=== PATIENT | female | born 1995 | race Caucasian/White ===

== ENCOUNTER 2019-02-17 13:26 | Emergency (ER) | payer SELFPAY ==
[~2019-02-17] VITALS: Ht 149.9 cm; Wt 52.8 kg
[2019-02-17 13:39] VITALS: BP 108/61; PULSE 62; RESP 18; Ht 149.9 cm; Wt 52.8 kg
[2019-02-17] MEDS ORDERED: CEFTRIAXONE 1 GM INJ IM ONE (15:00)
[2019-02-17] MEDS ORDERED: LIDOCAINE 1% (MPF) 5 ML VIAL INJ ONE (15:00)
[2019-02-17] MEDS ORDERED: CIPR500T4 PO (15:06)
--- NOTE | 2019-02-17 15:49 | ERD ---
ER Documentation Chief Complaint Chief Complaint painful urination and vaginal pain HPI 23-year-old female presenting with dysuria. Patient states is been going on for about a week. Denies any back pain in the denies fever. Has not taken medications for symptoms. Denies medical problems. NKDA. Surgical history denies. Social history denies ROS All systems reviewed and are negative except as per history of present illness. Medications Home Meds Active Scripts Ciprofloxacin Hcl* (Ciprofloxacin Hcl*) 500 Mg Tablet, 500 MG PO BID for 10 Days, TAB Prov:ADELE FLOR PA-C 02/17/19 Allergies Allergies: Coded Allergies: No Known Allergy (Unverified , 02/17/19) PMhx/Soc Medical and Surgical Hx: pt denies Medical Hx, pt denies Surgical Hx Hx Alcohol Use: No Hx Substance Use: No Hx Tobacco Use: No Smoking Status: Never smoker FmHx Family History: No diabetes, No coronary disease, No other Physical Exam Vitals Vital Signs Date Temp Pulse Resp B/P (MAP) Pulse Ox O2 O2 Flow FiO2 Time Delivery Rate 02/17/19 98.3 62 18 108/61 98 13:39 (77) Physical Exam GENERAL: The patient is well-appearing, well-nourished, in no acute distress CHEST: Clear to auscultation bilaterally. There are no rales, wheezes or rhonchi. HEART: Regular rate and rhythm. No murmurs, clicks, rubs or gallops. ABDOMEN:Soft, nontender and nondistended. Good bowel sounds. No rebound or guarding. No gross peritonitis. No gross organomegaly or masses. BACK: No midline or flank tenderness. Results 24 hrs Laboratory Tests Test 02/17/19 14:56 Bedside Urine pH (LAB) 5.5 Bedside Urine Protein (LAB) 2+ Bedside Urine Glucose (UA) Negative Bedside Urine Ketones (LAB) 1+ Bedside Urine Blood 2+ Bedside Urine Nitrite (LAB) Positive Bedside Urine Leukocyte Esterase (L 1+ POC Beta HCG, Qualitative NEGATIVE Current Medications Medications Dose Sig/Caprice Start Time Status Last (Trade) Ordered Route PRN Stop Time Admin Dose Reason Admin Ceftriaxone 1 gm ONCE ONCE 02/17/19 DC 02/17/19 Sodium IM 15:00 15:11 (Rocephin) 02/17/19 15:01 Lidocaine 5 ml ONCE ONCE 02/17/19 DC 02/17/19 (Xylocaine INJ 15:00 15:10 1% (Mpf)) 02/17/19 15:01 Procedures/MDM ER Course: Rocephin given in ED. MDM: 23-year-old female presenting with dysuria. Patient's urine shows signs of infection. Patient be treated with oral antibiotics. I have low suspicion for pyelonephritis. I have low suspicion for pelvic abnormality. Patient is discha rged with strict ER precautions and told to follow-up with primary care within 1 to 2 days for close evaluation. All questions answered at discharge. Departure Diagnosis: Primary Impression: UTI (urinary tract infection) Additional Impression: Dysuria Condition: Stable Patient Instructions: Understanding Urinary Tract Infections (UTIs) Referrals: [facility] YOU HAVE RECEIVED A MEDICAL SCREENING EXAM AND THE RESULTS INDICATE THAT YOU DO NOT HAVE A CONDITION THAT REQUIRES URGENT TREATMENT IN THE EMERGENCY DEPARTMENT. FURTHER EVALUATION AND TREATMENT OF YOUR CONDITION CAN WAIT UNTIL YOU ARE SEEN IN YOUR DOCTORS OFFICE WITHIN THE NEXT 1-2 DAYS. IT IS YOUR RESPONSIBILITY TO MAKE AN APPOINTMENT FOR FOLOW-UP CARE. IF YOU HAVE A PRIMARY DOCTOR --you should call your primary doctor and schedule an appointment IF YOU DO NOT HAVE A PRIMARY DOCTOR YOU CAN CALL OUR PHYSICIAN REFERRAL HOTLINE AT IF YOU CAN NOT AFFORD TO SEE A PHYSICIAN YOU CAN CHOSE FROM THE FOLLOWING [place] [facility] [address] [facility]. [facility] [address] [facility] [address] [facility] [address] [facility]. [facility] [address] [facility]. [facility]. [address] Additional Instructions: Llame al doctor MAANA y kev mj BARBRA PARA DENTRO DE 1-2 HAYWARD.Dgale a la secretaria que nosotros le instruimos hacer esta barbra.Avise o llame si ochoa condicin se empeora antes de la barbra. Regresa aqui si peor o no mejor. ADELE FLOR PA-C Feb 17, 2019 15:49
== END 2019-02-17 15:36 | disposition home or self-care (01) ==
LOC: FTE 13:26
DX: N39.0 Urinary tract infection, site not specified (principal)
CPT/HCPCS: 81003; 81025; 96372; 99284; J0696